=== PATIENT | male | born 1965 | race Caucasian/White ===

== ENCOUNTER 2016-10-19 17:08 | Emergency (ER) | payer SELFPAY ==
[~2016-10-19] VITALS: Ht 188 cm; Wt 90.9 kg
[~2016-10-19 17:08] MED LIST: ATAZ150 PO; NEOM1OIN8 TP; QUET100T PO; QUET300T2 PO; RITO100T PO; SERT100T12 PO; TRUVT PO
[2016-10-19 17:44] LABS: BASOPHILS # (AUTO) 0.01 K/uL (0.00-0.20); BASOPHILS % (AUTO) 0.2 % (0.0-2.0); EOSINOPHILS # (AUTO) 0.19 K/uL (0.00-0.70); EOSINOPHILS % (AUTO) 2.92 % (1.0-6.0); HEMATOCRIT 37.6 % (41-53); LYMPHOCYTES # (AUTO) 1.5 K/uL (1.0-4.8); LYMPHOCYTES % (AUTO) 22.1 % (22.0-44.0); MEAN CORPUSCULAR HEMOGLOBIN 32.2 pg (26.0-34.0); MEAN CORPUSCULAR HGB CONC 34.6 G/dL (31.0-37.0); MEAN CORPUSCULAR VOLUME 93 fL (80-100); MONOCYTES # (AUTO) 0.5 K/uL (0.1-1.0); MONOCYTES % (AUTO) 7.8 % (2.0-9.0); NEUTROPHILS # (AUTO) 4.4 K/uL (1.8-7.7); NEUTROPHILS % (AUTO) 67.1 % (40.0-70.0); PLATELET COUNT (AUTO) 206 K/uL (150-450); RED BLOOD CELL COUNT(AUTO) 4.04 MIL/uL (4.50-5.90); RED CELL DISTRIBUTION WIDTH 14.5 % (11.5-14.5); WHITE BLOOD COUNT (AUTO) 6.6 K/uL (4.5-11.0)
[2016-10-19 17:58] LABS: ANION GAP 6 mmol/L (8-16); CALCIUM, TOTAL 8.2 mg/dL (8.8-10.5); CARBON DIOXIDE 29 mmol/L (22-29); CHLORIDE 97 mmol/L (98-107); CREATININE 0.75 mg/dL (0.60-1.30); GLOMERULAR FILTR. RATE CALC > 60 mL/min (>60); POTASSIUM 4.1 mmol/L (3.5-5.1); SODIUM SERUM 132 mmol/L (136-145); UREA NITROGEN, BLOOD 11 mg/dL (7-18)
[2016-10-19 18:01] LABS: ALANINE AMINOTRANSFERASE 137 U/L (12-78); ALBUMIN 3.2 g/dL (3.4-5.0); ASPARTATE AMINOTRANSFERASE 147 U/L (15-37); BILIRUBIN,TOTAL 0.8 mg/dL (0.1-1.0); TOTAL PROTEIN, SERUM 7.5 g/dL (6.4-8.2)
[2016-10-19 21:14] VITALS: BP 125/68
== END 2016-10-19 21:16 | disposition home or self-care (01) ==
LOC: EMS 17:24
DX: F20.9 Schizophrenia, unspecified (principal); F17.210 Nicotine dependence, cigarettes, uncomplicated; F12.90 Cannabis use, unspecified, uncomplicated; F19.90 Other psychoactive substance use, unspecified, uncomplicated
CPT/HCPCS: 36415; 80053; 80307; 85025; 99285; G0480

== ENCOUNTER 2017-04-03 20:36 | Emergency (ER) | payer MEDICAID ==
[~2017-04-03] VITALS: Ht 188 cm; Wt 81.0 kg
[2017-04-03 21:22] LABS: BASOPHILS % (AUTO) 0.6 % (0.0-2.0); EOSINOPHILS % (AUTO) 4.9 % (1.0-6.0); HEMATOCRIT 38.2 % (41-53); HEMOGLOBIN 13.2 g/dL (13.5-17.5); LYMPHOCYTES # (AUTO) 3.3 K/uL (1.0-4.8); LYMPHOCYTES % (AUTO) 45.2 % (22.0-44.0); MEAN CORPUSCULAR HEMOGLOBIN 31.2 pg (26.0-34.0); MEAN CORPUSCULAR HGB CONC 34.4 G/dL (31.0-37.0); MEAN CORPUSCULAR VOLUME 91 fL (80-100); MONOCYTES # (AUTO) 0.4 K/uL (0.1-1.0); MONOCYTES % (AUTO) 5.5 % (2.0-9.0); NEUTROPHILS # (AUTO) 3.2 K/uL (1.8-7.7); NEUTROPHILS % (AUTO) 43.8 % (40.0-70.0); PLATELET COUNT (AUTO) 311 K/uL (150-450); RED BLOOD CELL COUNT(AUTO) 4.22 MIL/uL (4.50-5.90); WHITE BLOOD COUNT (AUTO) 7.3 K/uL (4.5-11.0)
[2017-04-03 21:39] LABS: ALANINE AMINOTRANSFERASE 52 U/L (12-78); ALBUMIN 3.2 g/dL (3.4-5.0); ANION GAP 9 mmol/L (8-16); ASPARTATE AMINOTRANSFERASE 51 U/L (15-37); BILIRUBIN,TOTAL 0.3 mg/dL (0.1-1.0); CALCIUM, TOTAL 8.3 mg/dL (8.8-10.5); CARBON DIOXIDE 28 mmol/L (22-29); CHLORIDE 105 mmol/L (98-107); CREATININE 0.78 mg/dL (0.60-1.30); GLOMERULAR FILTR. RATE CALC > 60 mL/min (>60); SODIUM SERUM 142 mmol/L (136-145); TOTAL PROTEIN, SERUM 7.6 g/dL (6.4-8.2); UREA NITROGEN, BLOOD 14 mg/dL (7-18)
[2017-04-03 21:43] LABS: POTASSIUM 2.9 mmol/L (3.5-5.1)
[2017-04-03] MEDS ORDERED: POTASSIUM CHLORIDE 20 MEQ ER TABLET PO ONE (22:00)
[2017-04-04] MEDS ORDERED: LIDOCAINE HCL 2% VISCOUS 15 ML SOLUTION UDCUP PO ONE (00:15)
[2017-04-04 04:32] VITALS: BP 122/78
== END 2017-04-04 05:36 | disposition home or self-care (01) ==
LOC: EMS 20:38
DX: F15.90 Other stimulant use, unspecified, uncomplicated (principal); F20.0 Paranoid schizophrenia; K12.1 Other forms of stomatitis; F12.90 Cannabis use, unspecified, uncomplicated; F17.210 Nicotine dependence, cigarettes, uncomplicated; Z79.899 Other long term (current) drug therapy
CPT/HCPCS: 36415; 73080; 80053; 80307; 85025; 99285; G0480

== ENCOUNTER 2017-10-26 22:32 | Inpatient (IN) | payer MEDICAID ==
[~2017-10-26] VITALS: Ht 188 cm; Wt 74.8 kg
[~2017-10-26 22:32] MED LIST changes: -ATAZ150 PO; -NEOM1OIN8 TP; -QUET300T2 PO; -RITO100T PO; -TRUVT PO
[2017-10-26 23:23] LABS: BASOPHILS % (AUTO) 0.9 % (0.0-2.0); EOSINOPHILS % (AUTO) 1.7 % (1.0-6.0); HEMATOCRIT 41.9 % (41-53); HEMOGLOBIN 14.5 g/dL (13.5-17.5); LYMPHOCYTES # (AUTO) 3.1 K/uL (1.0-4.8); MEAN CORPUSCULAR HEMOGLOBIN 31.4 pg (26.0-34.0); MEAN CORPUSCULAR HGB CONC 34.7 G/dL (31.0-37.0); MEAN CORPUSCULAR VOLUME 91 fL (80-100); MONOCYTES # (AUTO) 0.6 K/uL (0.1-1.0); MONOCYTES % (AUTO) 7.8 % (2.0-9.0); NEUTROPHILS # (AUTO) 3.6 K/uL (1.8-7.7); NEUTROPHILS % (AUTO) 48.6 % (40.0-70.0); PLATELET COUNT (AUTO) 289 K/uL (150-450); RED BLOOD CELL COUNT(AUTO) 4.63 MIL/uL (4.50-5.90); RED CELL DISTRIBUTION WIDTH 12.9 % (11.5-14.5)
[2017-10-26 23:34] LABS: ANION GAP 6 mmol/L (8-16); CALCIUM, TOTAL 8.7 mg/dL (8.8-10.5); CARBON DIOXIDE 28 mmol/L (22-29); CHLORIDE 103 mmol/L (98-107); CREATININE 0.62 mg/dL (0.60-1.30); GLOMERULAR FILTR. RATE CALC > 60 mL/min (>60); GLUCOSE,RANDOM 105 mg/dL (70-110); POTASSIUM 3.8 mmol/L (3.5-5.1); SODIUM SERUM 137 mmol/L (136-145); UREA NITROGEN, BLOOD 12 mg/dL (7-18)
[2017-10-26 23:39] LABS: ALANINE AMINOTRANSFERASE 32 U/L (12-78); ALKALINE PHOSPHATASE 112 U/L (46-116); ASPARTATE AMINOTRANSFERASE 51 U/L (15-37); BILIRUBIN,TOTAL 0.3 mg/dL (0.1-1.0); TOTAL PROTEIN, SERUM 8.3 g/dL (6.4-8.2)
[2017-10-27] MEDS ORDERED: QUEtiapine FUMARATE 100 MG TABLET PO PRN (00:30)
[2017-10-27] MEDS ORDERED: LORazepam 2 MG TABLET PO PRN (00:30)
[2017-10-27] MEDS ORDERED: ONDANSETRON HCL 4 MG TABLET PO PRN (08:30)
[2017-10-27] MEDS ORDERED: CloNIDine HCL 0.1 MG TABLET PO PRN (08:30)
[2017-10-27] MEDS ORDERED: BACITRACIN 28.4 GM OINTMENT TP PRN (08:30)
[2017-10-27] MEDS ORDERED: MAGNESIUM HYDROXIDE SUSPENSION 30 ML UDCUP PO PRN (08:30)
[2017-10-27] MEDS ORDERED: ACETAMINOPHEN 325 MG TABLET PO PRN (08:30)
[2017-10-27] MEDS ORDERED: LOPERAMIDE HCL 2 MG CAPSULE PO PRN (08:30)
[2017-10-27] MEDS ORDERED: BENZOCAINE/MENTHOL LOZENGE MM PRN (08:30)
[2017-10-27] MEDS ORDERED: ALBUTEROL SULFATE HFA 90 MCG/PUFF 8 GM INHALER IH PRN (08:30)
[2017-10-27] MEDS ORDERED: PETROLATUM,WHITE 71 GM JELLY TP PRN (08:30)
[2017-10-27] MEDS ORDERED: MAG HYDROX/AL HYDROX/SIMETH ES 30 ML SUSPENSION UDCUP PO PRN (08:30)
[2017-10-27] MEDS: OMEPRAZOLE 20 MG CAPSULE PO SCH (09:00)
[2017-10-27] MEDS: MULTIVITAMINS WITH MINERALS, THERAPEUTIC TABLET PO SCH (09:00)
[2017-10-27 09:05] VITALS: BP 106/62
[2017-10-27] MEDS ORDERED: NICOTINE 7 MG/24 HOUR PATCH TD ONE (10:00)
[2017-10-27] MEDS ORDERED: BENZOCAINE/MENTHOL LOZENGE [8 LOZENGES/PACKET] MM PRN ×2 (16:49→17:00)
[2017-10-27 19:54] VITALS: BP 132/68
[2017-10-27] MEDS: QUEtiapine FUMARATE 300 MG ER TABLET PO SCH (20:32)
[2017-10-27] MEDS: BACITRACIN 28.4 GM OINTMENT TP SCH (20:35)
[2017-10-27 22:22] VITALS: BP 120/81
[2017-10-28 01:00] VITALS: BP 121/82
[2017-10-28] MEDS: ZOLPIDEM TARTRATE 10 MG TABLET PO PRN (01:00)
[2017-10-28] MEDS: IBUPROFEN 600 MG TABLET PO PRN (01:00)
[2017-10-28 09:00] VITALS: BP 106/70
[2017-10-28] MEDS: OMEPRAZOLE 20 MG CAPSULE PO SCH (10:00)
[2017-10-28] MEDS: MULTIVITAMINS WITH MINERALS, THERAPEUTIC TABLET PO SCH (10:01)
[2017-10-28] MEDS: SERTRALINE HCL 100 MG TABLET PO SCH (10:01)
[2017-10-28] MEDS: BACITRACIN 28.4 GM OINTMENT TP SCH ×2 (13:47→17:20)
[2017-10-28 20:04] VITALS: BP 111/79
[2017-10-28] MEDS: QUEtiapine FUMARATE 300 MG ER TABLET PO SCH (20:48)
[2017-10-29 01:30] VITALS: BP 118/46
[2017-10-29] MEDS: ZOLPIDEM TARTRATE 10 MG TABLET PO PRN (01:49)
[2017-10-29] MEDS: IBUPROFEN 600 MG TABLET PO PRN (01:49)
[2017-10-29 08:45] VITALS: BP 120/68
[2017-10-29] MEDS: OMEPRAZOLE 20 MG CAPSULE PO SCH (09:21)
[2017-10-29] MEDS: SERTRALINE HCL 100 MG TABLET PO SCH (09:22)
[2017-10-29] MEDS: MULTIVITAMINS WITH MINERALS, THERAPEUTIC TABLET PO SCH (09:22)
[2017-10-29] MEDS: BACITRACIN 28.4 GM OINTMENT TP SCH ×2 (13:25→17:21)
[2017-10-29 17:59] VITALS: BP 122/69
[2017-10-29] MEDS: QUEtiapine FUMARATE 300 MG ER TABLET PO SCH (20:34)
[2017-10-30 01:26] VITALS: BP 117/70
[2017-10-30 09:00] VITALS: BP 119/75
[2017-10-30] MEDS: OMEPRAZOLE 20 MG CAPSULE PO SCH (09:36)
[2017-10-30] MEDS: MULTIVITAMINS WITH MINERALS, THERAPEUTIC TABLET PO SCH (09:36)
[2017-10-30] MEDS: SERTRALINE HCL 100 MG TABLET PO SCH (09:36)
[2017-10-30] MEDS: BACITRACIN 28.4 GM OINTMENT TP SCH ×2 (09:36→16:09)
[2017-10-30 17:23] VITALS: BP 119/70
[2017-10-30] MEDS: RITONAVIR 100 MG TABLET PO SCH (18:30)
[2017-10-30] MEDS: ZOLPIDEM TARTRATE 10 MG TABLET PO PRN (20:42)
[2017-10-30] MEDS: QUEtiapine FUMARATE 300 MG ER TABLET PO SCH (20:43)
[2017-10-31 03:16] VITALS: BP 100/66
[2017-10-31] MEDS: RITONAVIR 100 MG TABLET PO SCH (06:55)
[2017-10-31 08:40] VITALS: BP 104/64
[2017-10-31] MEDS: EMTRICITABINE/TENOFOVIR 200-300 MG TABLET PO SCH (09:24)
[2017-10-31] MEDS: MULTIVITAMINS WITH MINERALS, THERAPEUTIC TABLET PO SCH (09:24)
[2017-10-31] MEDS: SERTRALINE HCL 100 MG TABLET PO SCH (09:25)
[2017-10-31] MEDS: ATAZANAVIR SULFATE 300 MG CAPSULE PO SCH (09:25)
[2017-10-31] MEDS: OMEPRAZOLE 20 MG CAPSULE PO SCH (09:25)
[2017-10-31] MEDS: BACITRACIN 28.4 GM OINTMENT TP SCH ×2 (12:51→16:21)
[2017-10-31 18:50] VITALS: BP 100/60
[2017-10-31] MEDS: QUEtiapine FUMARATE 300 MG ER TABLET PO SCH (20:12)
[2017-10-31] MEDS: ZOLPIDEM TARTRATE 10 MG TABLET PO PRN (21:51)
[2017-11-01 02:50] VITALS: BP 113/77
[2017-11-01] MEDS: RITONAVIR 100 MG TABLET PO SCH (06:58)
[2017-11-01 08:40] VITALS: BP 122/72
[2017-11-01] MEDS: MULTIVITAMINS WITH MINERALS, THERAPEUTIC TABLET PO SCH (09:22)
[2017-11-01] MEDS: ATAZANAVIR SULFATE 300 MG CAPSULE PO SCH (09:22)
[2017-11-01] MEDS: EMTRICITABINE/TENOFOVIR 200-300 MG TABLET PO SCH (09:22)
[2017-11-01] MEDS: OMEPRAZOLE 20 MG CAPSULE PO SCH (09:22)
[2017-11-01] MEDS: SERTRALINE HCL 100 MG TABLET PO SCH (09:23)
[2017-11-01] MEDS: BACITRACIN 28.4 GM OINTMENT TP SCH (09:23)
[2017-11-01] MEDS ORDERED: ATAZ150 PO (09:25)
[2017-11-01] MEDS ORDERED: BACI30OI6 TP (09:26)
[2017-11-01] MEDS ORDERED: TRUVT PO (09:26)
[2017-11-01] MEDS ORDERED: MULT1CAP32 PO (09:27)
[2017-11-01] MEDS ORDERED: OMEP20 PO (09:27)
[2017-11-01] MEDS ORDERED: RITO100T PO (09:28)
== END 2017-11-01 14:15 | disposition home or self-care (01) | DRG 750 ==
LOC: EMS 22:33 → AHU 10-27 07:41 → 3EI 10-27 21:30
PROVIDERS: ADMIT Psychiatry & Neurology Psychiatry; ATTEND Psychiatry & Neurology Psychiatry
DX: F25.0 Schizoaffective disorder, bipolar type (principal); R45.851 Suicidal ideations; R45.850 Homicidal ideations; E55.9 Vitamin D deficiency, unspecified; F15.10 Other stimulant abuse, uncomplicated; J44.9 Chronic obstructive pulmonary disease, unspecified; F41.9 Anxiety disorder, unspecified; K21.9 Gastro-esophageal reflux disease without esophagitis; K59.00 Constipation, unspecified; F12.90 Cannabis use, unspecified, uncomplicated; F19.20 Other psychoactive substance dependence, uncomplicated; Z59.0 Homelessness; Z87.891 Personal history of nicotine dependence; Z91.19 Patient's noncompliance with other medical treatment and regimen; Z91.5 Personal history of self-harm
CPT/HCPCS: 99285; G0480

== ENCOUNTER 2018-05-05 14:45 | Emergency (ER) | payer MEDICAID ==
[~2018-05-05] VITALS: Ht 182.9 cm; Wt 77.3 kg
[~2018-05-05 14:45] MED LIST changes: +ATAZ150 PO; +BACI30OI6 TP; +MULT1CAP32 PO; +OMEP20 PO; +RITO100T PO; +TRUVT PO
[2018-05-05] MEDS ORDERED: SODIUM CHLORIDE 0.9% 1,000 ML IV ONE (15:45)
[2018-05-05] MEDS ORDERED: ONDANSETRON HCL 4 MG/2 ML VIAL IVP ONE (15:45)
[2018-05-05 16:05] LABS: AMPHET/METH SCREEN,URINE POSITIVE (NEGATIVE); BARBITURATE SCREEN, URINE NEGATIVE (NEGATIVE); BENZODIAZEPINES SCREEN,URINE NEGATIVE (NEGATIVE); CANNABINOID SCREEN,URINE POSITIVE (NEGATIVE); COCAINE SCREEN,URINE NEGATIVE (NEGATIVE); METHADONE SCREEN, URINE NEGATIVE (NEGATIVE); OPIATE SCREEN,URINE NEGATIVE (NEGATIVE)
[2018-05-05 16:06] LABS: PHENCYCLIDINE SCREEN,URINE NEGATIVE (NEGATIVE)
[2018-05-05 16:25] LABS: BASOPHILS % (AUTO) 1.4 % (0.0-2.0); EOSINOPHILS % (AUTO) 3.1 % (1.0-6.0); HEMATOCRIT 43.4 % (41-53); HEMOGLOBIN 14.8 g/dL (13.5-17.5); LYMPHOCYTES # (AUTO) 3.6 K/uL (1.0-4.8); LYMPHOCYTES % (AUTO) 41.1 % (22.0-44.0); MEAN CORPUSCULAR HEMOGLOBIN 30.3 pg (26.0-34.0); MEAN CORPUSCULAR HGB CONC 34.1 G/dL (31.0-37.0); MEAN CORPUSCULAR VOLUME 89 fL (80-100); MONOCYTES # (AUTO) 0.6 K/uL (0.1-1.0); MONOCYTES % (AUTO) 7.5 % (2.0-9.0); NEUTROPHILS # (AUTO) 4.1 K/uL (1.8-7.7); NEUTROPHILS % (AUTO) 46.9 % (40.0-70.0); PLATELET COUNT (AUTO) 264 K/uL (150-450); RED BLOOD CELL COUNT(AUTO) 4.89 MIL/uL (4.50-5.90); RED CELL DISTRIBUTION WIDTH 15.4 % (11.5-14.5)
[2018-05-05 16:40] LABS: ANION GAP 11 mmol/L (8-16); CALCIUM, TOTAL 8.6 mg/dL (8.8-10.5); CARBON DIOXIDE 26 mmol/L (22-29); CHLORIDE 103 mmol/L (98-107); CREATININE 0.78 mg/dL (0.60-1.30); GLOMERULAR FILTR. RATE CALC > 60 mL/min (>60); GLUCOSE,RANDOM 84 mg/dL (70-110); POTASSIUM 3.2 mmol/L (3.5-5.1); SODIUM SERUM 140 mmol/L (136-145); UREA NITROGEN, BLOOD 20 mg/dL (7-18)
[2018-05-05 16:45] LABS: ALANINE AMINOTRANSFERASE 49 U/L (12-78); ALBUMIN 3.4 g/dL (3.4-5.0); ALKALINE PHOSPHATASE 107 U/L (46-116); ASPARTATE AMINOTRANSFERASE 32 U/L (15-37); BILIRUBIN,TOTAL 0.3 mg/dL (0.1-1.0); TOTAL PROTEIN, SERUM 8.4 g/dL (6.4-8.2)
[2018-05-05] MEDS ORDERED: POTASSIUM CHLORIDE 20 MEQ ER TABLET PO ONE (17:15)
[2018-05-05] MEDS ORDERED: SULFAMETHOX/TRIMETH DS 800-160 MG/TABLET PO ONE (17:15)
[2018-05-05 19:51] VITALS: BP 136/87
== END 2018-05-05 20:27 | disposition home or self-care (01) ==
LOC: EMS 14:46
DX: L03.317 Cellulitis of buttock (principal); F32.9 Major depressive disorder, single episode, unspecified; M25.512 Pain in left shoulder; R07.9 Chest pain, unspecified; F41.9 Anxiety disorder, unspecified; F20.9 Schizophrenia, unspecified; F17.210 Nicotine dependence, cigarettes, uncomplicated; F12.90 Cannabis use, unspecified, uncomplicated; F19.90 Other psychoactive substance use, unspecified, uncomplicated
CPT/HCPCS: 36415; 71045; 73030; 80053; 80307; 84484; 85025; 93005; 96374; 99285; G0480; J2405; J7030